=== PATIENT | female | born 1985 | race African-American/Black ===

== ENCOUNTER 2016-05-10 04:04 | Inpatient (IN) | payer MEDICAID ==
[2016-05-10] MEDS ORDERED: MAGNESIUM SULFATE 2GM/50ML 2 GM/50 ML BAG IV ONE ×2 (04:10→04:17)
[2016-05-10] MEDS ORDERED: ATROVENT IH ONE ×2 (04:15→04:17)
[2016-05-10] MEDS ORDERED: PROVENTIL IH ONE ×2 (04:15→04:17)
[2016-05-10 04:56] LABS: Basophils % (Auto) 0.5 % (0.0-1.8); Eosinophils % (Auto) 6.4 % (0.0-4.3); Hematocrit 43.1 % (30.3-42.9); Hemoglobin 13.9 gm/dl (10.1-14.3); Mean Corpuscular HGB Conc 32 % (30-34); Mean Corpuscular Hemoglobin 26 pg (28-32); Mean Corpuscular Volume 80 fl (79-97); Platelet Count 290 K/mm3 (140-440); Red Blood Count 5.39 M/mm3 (3.65-5.03); Red Cell Distribution Width 14.1 % (13.2-15.2); White Blood Count 13.6 K/mm3 (4.5-11.0)
[2016-05-10 05:34] LABS: Alanine Aminotransferase 7 units/L (7-56); Albumin 3.9 g/dL (3.9-5); Albumin/Globulin Ratio 1.2 %; Alkaline Phosphatase 98 units/L (35-129); Anion Gap 22 mmol/L; BUN/Creatinine Ratio 16.66; Bilirubin,Total 0.7 mg/dL (0.1-1.2); Blood Urea Nitrogen 10 mg/dL (7-17); Calcium 8.6 mg/dL (8.4-10.2); Carbon Dioxide 18 mmol/L (22-30); Chloride 104.5 mmol/L (98-107); Glucose 128 mg/dL (65-100); Potassium 3.4 mmol/L (3.6-5.0); Sodium 141 mmol/L (137-145); Total Protein 7.2 g/dL (6.3-8.2)
[2016-05-10] MEDS ORDERED: MILK OF MAGNESIA PO PRN (06:08)
[2016-05-10] MEDS ORDERED: ZOFRAN IV PRN (06:08)
[2016-05-10] MEDS ORDERED: TYLENOL PO PRN (06:08)
[2016-05-10] MEDS ORDERED: DULCOLAX PR PRN (06:08)
--- NOTE | 2016-05-10 06:14 | History and Physical Report ---
History of Present Illness Date of examination: 05/10/16 History of present illness: 30-year-old woman with a history of asthma comes emergency room with complaints of shortness of breath that started on Sunday. She has been using her nebulizer treatments without significant improvement. Also complaining of cough productive of yellow phlegm, no fever or chills Patient denies chest pain, palpitation, abdominal pain, hematochezia, dysuria, frequency, focal weakness, dysarthria, fever chills, polydipsia polyuria, hot or cold intolerance, easy bruisability, or rash or bleeding from mucosal membrane, rhinorrhea, epistaxis, earache, tinnitus, blurry vision, eye discharge , anxiety, depression. Other review of systems negative PAST SURGICAL HISTORY: None SOCIAL HISTORY: Smoke half a pack a day, social alcohol no drugs FAMILY HISTORY: Hypertension Medications and Allergies Allergies Allergy/AdvReac Type Severity Reaction Status Date / Time No Known Allergies Allergy Verified 11/09/14 06:58 Home Medications Medication Instructions Recorded Confirmed Last Taken Type Nitrofurantoin [place]/M-Cryst 100 mg PO Q12HR #14 capsule 11/09/14 Unknown Rx [Macrobid CAP] Promethazine Dm [Phenergan Dm 5 ml PO Q6H PRN #60 ml 11/09/14 Unknown Rx 6.25/15 mg 5 ml] Exam - Physical Exam Narrative exam: Gen. appearance: Patient lying in bed, no apparent distress HEENT: Normocephalic, atraumatic, pupils equally round and reactive to light, extraocular movement intact, and no sclericterus,. No JVD or thyromegaly or nodule,neck supple, no carotid bruit ,mucous membranes moist, no exudate or erythema Heart: S1, S2, regular rate and rhythm Lungs: Wheezing bilaterally, breathing comfortable Abdomen: Positive bowel sounds, nontender, nondistended, no organomegaly Extremity: No edema, cyanosis, clubbing Skin: No rash, nodules, warm, dry Neuro: Oriented 3, cranial nerves II-12 intact, speech is fluent, motor and sensory intact - Constitutional Vitals: Temp Pulse Resp BP Pulse Ox 102 H 28 H 114/74 96 05/10/16 04:52 05/10/16 04:52 05/10/16 04:52 05/10/16 04:52 Results - Labs CBC & Chem 7: 05/10/16 04:28 05/10/16 04:28 Labs: Abnormal lab results 05/10/16 05/10/16 Range/Units 04:28 04:28 WBC 13.6 H (4.5-11.0) K/mm3 RBC 5.39 H (3.65-5.03) M/mm3 Hct 43.1 H (30.3-42.9) % MCH 26 L (28-32) pg Eos % (Auto) 6.4 H (0.0-4.3) % Eos # 0.9 H (0.0-0.4) K/mm3 Seg Neutrophils # 8.8 H (1.8-7.7) K/mm3 Potassium 3.4 L (3.6-5.0) mmol/L Carbon Dioxide 18 L (22-30) mmol/L Creatinine 0.6 L (0.7-1.2) mg/dL Glucose 128 H (65-100) mg/dL Magnesium 4.0 H (1.7-2.3) mg/dL - Imaging and Cardiology Chest x-ray: image reviewed Assessment and Plan Asthma exacerbation Admit to medicine Start IV steroids high-dose, nebulizer treatments, and IV azithromycin Start DVT prophylaxis
--- NOTE | 2016-05-10 06:17 | Emergency Department Report ---
HPI - General Chief Complaint: Dyspnea/Respdistress Time Seen by Provider: 05/10/16 04:15 - HPI HPI: This is a 30-year-old female presents to the emergency department with a 2 to three-day history of shortness of breath, wheezing and a productive cough with yellowish sputum. Patient has a past medical history of asthma. She is a tobacco smoker. She things that her symptoms started because of the recent pollen. She's been using an inhaler without much relief. She does have a nebulized breathing machine but does not have any of the medication for. No recent travel or sick contacts at home. She denies any history of AR, CVA, PE/ DVT. She does not currently have a primary care doctor. ED Past Medical Hx - Past Medical History Previous Medical History?: Yes Hx Asthma: Yes Additional medical history: BRONCHITIS - Surgical History Past Surgical History?: No - Social History Smoking Status: Current Every Day Smoker Substance Use Type: None - Medications Home Medications: Home Medications Medication Instructions Recorded Confirmed Last Taken Type Nitrofurantoin [place]/M-Cryst 100 mg PO Q12HR #14 capsule 11/09/14 Unknown Rx [Macrobid CAP] Promethazine Dm [Phenergan Dm 5 ml PO Q6H PRN #60 ml 11/09/14 Unknown Rx 6.25/15 mg 5 ml] ED Review of Systems ROS: Stated complaint: RAYMON/ASTHMA Other details as noted in HPI Comment: All other systems reviewed and negative Constitutional: denies: chills, fever Eyes: denies: eye pain, eye discharge, vision change ENT: denies: ear pain, throat pain Respiratory: cough, shortness of breath, wheezing Cardiovascular: denies: chest pain, palpitations Gastrointestinal: denies: abdominal pain, nausea, diarrhea Genitourinary: denies: urgency, dysuria, discharge Musculoskeletal: denies: back pain, joint swelling, arthralgia Skin: denies: rash, lesions Neurological: denies: headache, weakness, paresthesias Physical Exam - Physical Exam Vital Signs: Vital Signs 05/10/16 05/10/16 05/10/16 04:05 04:08 04:10 Pulse Rate 132 H 125 H Pulse Rate [ Anterior Bilateral Throughout] Respiratory 28 H 25 H Rate Respiratory Rate [Anterior Bilateral Throughout] Blood Pressure 152/87 133/88 O2 Sat by Pulse 85 92 92 Oximetry 05/10/16 05/10/16 05/10/16 04:15 04:20 04:26 Pulse Rate 112 H 109 H 111 H Pulse Rate [ Anterior Bilateral Throughout] Respiratory 29 H 34 H 19 Rate Respiratory Rate [Anterior Bilateral Throughout] Blood Pressure 133/88 O2 Sat by Pulse 90 94 93 Oximetry 05/10/16 05/10/16 05/10/16 04:30 04:36 04:40 Pulse Rate 102 H 100 H Pulse Rate [ 102 H Anterior Bilateral Throughout] Respiratory 24 24 Rate Respiratory 23 Rate [Anterior Bilateral Throughout] Blood Pressure 118/78 118/78 O2 Sat by Pulse 93 94 Oximetry 05/10/16 04:52 Pulse Rate 101 H Pulse Rate [ 102 H Anterior Bilateral Throughout] Respiratory 26 H Rate Respiratory 28 H Rate [Anterior Bilateral Throughout] Blood Pressure 114/74 O2 Sat by Pulse 96 Oximetry Physical Exam: GENERAL: The patient is well-developed well-nourished. HEENT: Normocephalic. Atraumatic. Extraocular motions are intact. Patient has moist mucous membranes. Pupils equal reactive to light bilaterally. NECK: Supple. Trachea is midline. CHEST/LUNGS: Patient has moderate wheezing throughout the chest. There is some tachypnea and some mild supraclavicular accessory muscle use. There is conversational dyspnea. There is mild to moderate respiratory distress noted. HEART/CARDIOVASCULAR: Regular. There is mild to moderate tachycardia. There is no gallop rub or murmur. ABDOMEN: Abdomen is soft, nontender. Patient has normal bowel sounds. There is no abdominal distention. SKIN: Skin is warm and dry.. NEURO: The patient is awake, alert, and oriented. The patient is cooperative. The patient has no focal neurologic deficits. MUSCULOSKELETAL: There is no tenderness or deformity. There is no limitation range of motion. There is no evidence of acute injury. Radial pulses +2 over 4 bilaterally. Cap refill less than 2 seconds. ED Course Vital Signs 05/10/16 05/10/16 05/10/16 04:05 04:08 04:10 Pulse Rate 132 H 125 H Pulse Rate [ Anterior Bilateral Throughout] Respiratory 28 H 25 H Rate Respiratory Rate [Anterior Bilateral Throughout] Blood Pressure 152/87 133/88 O2 Sat by Pulse 85 92 92 Oximetry 05/10/16 05/10/16 05/10/16 04:15 04:20 04:26 Pulse Rate 112 H 109 H 111 H Pulse Rate [ Anterior Bilateral Throughout] Respiratory 29 H 34 H 19 Rate Respiratory Rate [Anterior Bilateral Throughout] Blood Pressure 133/88 O2 Sat by Pulse 90 94 93 Oximetry 05/10/16 05/10/16 05/10/16 04:30 04:36 04:40 Pulse Rate 102 H 100 H Pulse Rate [ 102 H Anterior Bilateral Throughout] Respiratory 24 24 Rate Respiratory 23 Rate [Anterior Bilateral Throughout] Blood Pressure 118/78 118/78 O2 Sat by Pulse 93 94 Oximetry 05/10/16 04:52 Pulse Rate 101 H Pulse Rate [ 102 H Anterior Bilateral Throughout] Respiratory 26 H Rate Respiratory 28 H Rate [Anterior Bilateral Throughout] Blood Pressure 114/74 O2 Sat by Pulse 96 Oximetry ED Medical Decision Making - Lab Data Result diagrams: 05/10/16 04:28 05/10/16 04:28 - EKG Data -: EKG Interpreted by Me EKG shows normal: sinus rhythm, axis, intervals, QRS complexes, ST-T waves Rate: normal - EKG Data When compared to previous EKG there are: previous EKG unavailable Interpretation: normal EKG - Radiology Data Radiology results: image reviewed interpreted by me: Chest x-ray did not show any acute process. Heart is normal shape and size. No effusions. No pneumothorax. No signs of pneumonia seen. - Medical Decision Making 30-year-old female presents with 2 day history of wheezing, cough, shortness of breath. Patient appears to have significant bronchospasm causing some respiratory distress. She required prolonged breathing treatment followed by BiPAP. However on the BiPAP machine the patient appears improved. Patient was given Solu-Medrol, magnesium. Patient's labs are mostly unremarkable and included a negative troponin and a negative d-dimer. Chest x-ray did not show any signs of pneumonia or any acute process. Despite all of the treatments thus far, the patient still continues to have bronchospasm and will need admission. She will need serial nebulized treatments and steroids. She has been accepted for admission by the hospitalist. - Differential Diagnosis asthma, bronchitis, pneumonia, PE, AR Critical Care Time: No Critical care attestation.: If time is entered above; I have spent that time in minutes in the direct care of this critically ill patient, excluding procedure time. ED Disposition Clinical Impression: Respiratory distress, Asthma exacerbation, Bronchospasm Disposition: OP ADMITTED IP TO THIS HOSP Is pt being admited?: Yes Condition: Stable Referrals: PRIMARY CARE, [Primary Care Provider] - 3-5 Days Time of Disposition: 06:18
--- NOTE | 2016-05-10 06:39 | Admit Criteria Form ---
Admission Criteria Documentation: ASTHMA Clinical Indications for Admission to Inpatient Care (Place 'X' for any and all applicable criteria): Admission is indicated for ANY ONE of the following (1)(2)(3)(4)(5): [ ]I. Absent or markedly diminished breath sounds (silent chest) [ ]II. Oxygen saturation < 92% [ ]III. PaCO2 = / > 42 mm Hg (5.6 kPa) [ ]IV. Peak expiratory flow rate < 40% of predicted or personal best after treatment. [ ]V. Peak expiratory flow rate < 33% of predicted or personal before after treatment [ ]. Change in mental status [ ]VII. Ventilatory support required [ ]VIII. PaO2 < 60 mm Hg (8.0 kPa) [ ]IX. Cyanosis [ ]X. Cardiac dysrhythmia (e.g., bradycardia) [ ]XI. Hemodynamic instability [ ]XII. Radiographic evidence of complication requiring inpatient treatment (e.g., pneumonia, pneumothorax) [ X]XIII. Inpatient admission required rather than observation care (also use Asthma: Observation Care guideline as appropriate) because of ANY ONE of the following: [X ]a) Respiratory finding that is severe or persistent (eg, dyspnea, tachypnea, accessory muscle use) [ ]b) Airflow measurements less than 60% of predicted or personal best that persist (e.g., over 24 hours) or worsen despite treatments [ ]c) Supplemental oxygen or respiratory treatments for over 24 hours that are performable only in acute inpatient setting [ X]d) Other condition, treatment or monitoring requiring inpatient admission. Extended stay beyond goal length of stay may be needed for (26)(27)(28): [ ]a) Severe respiratory failure (23) (29) (30) [ ]b) Secondary causes and complications (25) [ ]c) Status asthmaticus [ ]d) Chronic obstructive asthma [ ]e) Older patients (29) [ ]f) Slow resolution [ ]g) Clinically significant exacerbation of comorbidities (eg, hank. heart failure, atrial fibrillation) The original [employer] [facility] content created by [employer] has been revised. The portions of the content which have been revised are identified through the use of italic text or in bold, and [employer] [employer] has neither reviewed nor approved the modified material. All other unmodified content is copyright [facility] Please see references footnoted in the original [facility] edition 2016 Admission Criteria Met: Yes
[2016-05-10 06:57] LABS: ISTAT Base Excess -7; ISTAT HCO3 19.4; ISTAT PCO2 40.1 (35-45); ISTAT PH 7.292 (7.35-7.45); ISTAT PO2 28 (80-105); ISTAT SO2 46; ISTAT TCO2 21
[2016-05-10 06:57] LABS: ISTAT Base Excess -7; ISTAT HCO3 18.6; ISTAT PCO2 34.6 (35-45); ISTAT PH 7.338 (7.35-7.45); ISTAT PO2 80 (80-105); ISTAT SO2 95; ISTAT TCO2 20
--- NOTE | 2016-05-10 07:32 | XRay Report ---
AP CHEST: HISTORY: Dyspnea AP view of the chest demonstrates a normal mediastinal and cardiac contour with clear lungs and normal bony and soft tissue structures. IMPRESSION: Unremarkable AP chest. No significant change since 11/09/14.
[2016-05-10] MEDS ORDERED: DUONEB 0.5 MG-3 MG/3 ML SOLN IH ONE (08:22)
[2016-05-10] MEDS: DUONEB 0.5 MG-3 MG/3 ML SOLN IH SCH ×5 (08:31→20:43)
[2016-05-10] MEDS: LOVENOX SUB-Q SCH (10:00)
[2016-05-10] MEDS: ZITHROMAX 500 MG in NACL 0.9% 250ML 250 ML IV SCH (10:00)
--- NOTE | 2016-05-10 13:19 | Event Note ---
Date: 05/10/16 Patient with asthma excaerbation with acute resp failure. She was seen and examined. Continue BIPAP. Will consult Marketing Underwriter.
--- NOTE | 2016-05-10 21:34 | Consultation ---
History of Present Illness Consult date: 05/10/16 Reason for consult: cough, asthma History of present illness: Tis is 30 year old female has history of asthma admitted with shortness of breath, wheezing and cough. Coughing up yellow sputum. Patient denies allergies to the medications. Patient gets asthma attacks twice a year. 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 Patient denies other medical problems. Patient has history of smoking 1/2 a pack a day for 10 years. Counselled her to stop smoking.Drinks alcohol socially.No history of drug abuse.Family history positive for hypertension. Past History Past Medical History: other (Asthma.) Medications and Allergies Allergies Allergy/AdvReac Type Severity Reaction Status Date / Time No Known Allergies Allergy Verified 05/10/16 08:55 Home Medications Medication Instructions Recorded Confirmed Last Taken Type ALBUTEROL Inhaler [Proair] 2 puff IH QID PRN 05/10/16 05/10/16 05/09/16 History ALBUTEROL NEB's [Proventil] 2.5 mg IH TID PRN 05/10/16 05/10/16 05/09/16 History Loratadine/Pseudoephedrine 1 tab PO DAILY 05/10/16 05/10/16 05/09/16 History [Claritin-D 24Hr] Active Meds: Active Medications Acetaminophen (Tylenol) 650 mg PO Q4H PRN PRN Reason: Pain MILD(1-3)/Fever >100.5/MANJARREZ Albuterol/Ipratropium (Duoneb 0.5 Mg-3 Mg/3 Ml Soln) 1 ampul IH Q6HRT [facility] Last Admin: 05/10/16 20:43 Dose: 1 ampul Bisacodyl (Dulcolax) 10 mg TN QDAY PRN PRN Reason: Constipation unrelieved by MOM Enoxaparin Sodium (Lovenox) 40 mg SUB-Q QDAY [facility] Last Admin: 05/10/16 10:00 Dose: 40 mg Azithromycin 500 mg/ Sodium (Chloride) 250 mls @ 250 mls/hr IV Q24HR [facility] Last Admin: 05/10/16 10:00 Dose: 250 mls/hr Magnesium Hydroxide (Milk Of Magnesia) 30 ml PO Q4H PRN PRN Reason: Constipation Methylprednisolone Sodium Succinate (Solu-Medrol) 125 mg IV Q6H [facility] Last Admin: 05/10/16 15:49 Dose: 125 mg Ondansetron HCl (Zofran) 4 mg IV Q8H PRN PRN Reason: N/V unrelieved by Deidre Review of Systems All systems: negative Physical Examination Vital signs: Vital Signs Pulse Resp BP Pulse Ox 132 H 28 H 152/87 85 05/10/16 04:05 05/10/16 04:05 05/10/16 04:05 05/10/16 04:05 General appearance: alert, other ( mild to moderate respiratory distress.) ENT: oropharynx moist Neck: supple, no JVD Ascultation: Bilateral: wheezes, rhonchi Cardiovascular: regular rate and rhythm Gastrointestinal: normoactive bowel sounds, soft, non-tender Integumentary: normal Extremities: no cyanosis, no edema Musculoskeletal: no deformities Gait: normal gait normal mental status, non-focal exam, pupils equal and round, CN II-XII normal mood appropriate Results - Laboratory Findings CBC and BMP: 05/10/16 04:28 05/10/16 04:28 ABG POC ABG pH 7.338 (7.35-7.45) L 05/10/16 06:49 POC ABG pCO2 34.6 (35-45) L 05/10/16 06:49 POC ABG pO2 80 (80-105) 05/10/16 06:49 POC ABG HCO3 18.6 05/10/16 06:49 POC ABG Total CO2 20 05/10/16 06:49 POC ABG O2 Sat 95 05/10/16 06:49 PT/INR, D-dimer D-Dimer < 135.00 ng/mlDDU (0-234) 05/10/16 04:28 Abnormal lab findings: Abnormal Labs 05/10/16 06:49 POC ABG pH 7.338 L POC ABG pCO2 34.6 L - Diagnostic Findings Chest x-ray: report reviewed (Unremarkable chest xray.), image reviewed Assessment and Plan Tis is 30 year old female has history of asthma admitted with shortness of breath, wheezing and cough. Coughing up yellow sputum. Patient denies allergies to the medications. Patient gets asthma attacks twice a year. 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 Patient denies other medical problems. Patient has history of smoking 1/2 a pack a day for 10 years. Counselled her to stop smoking.Drinks alcohol socially.No history of drug abuse.Family history positive for hypertension. - Patient Problems (1) Acute bronchitis Current Visit: Yes Status: Acute Qualifiers: Bronchitis organism: B Plan to address problem: Continue Zithromax. Recommend to add ceftrioxone also. (2) Asthma exacerbation Current Visit: Yes Status: Acute Plan to address problem: BIPAP 16/8, rate 20, FIO2 40% Albuterol/Atrovent aerosol treatments q 6 hours. Continue I/V solumedral. Continue S/C Lovenox. (3) Respiratory distress Current Visit: Yes Status: Acute Plan to address problem: BIPAP 16/8, rate 20, FIO2 40%. ABGs on bipap tomorrow.
[2016-05-11] MEDS: DUONEB 0.5 MG-3 MG/3 ML SOLN IH SCH ×5 (01:46→19:29)
[2016-05-11 07:14] LABS: Hematocrit 45.3 % (30.3-42.9); Mean Corpuscular HGB Conc 33 % (30-34); Mean Corpuscular Hemoglobin 26 pg (28-32); Mean Corpuscular Volume 79 fl (79-97); Platelet Count 334 K/mm3 (140-440); Red Blood Count 5.76 M/mm3 (3.65-5.03); Red Cell Distribution Width 14.4 % (13.2-15.2)
[2016-05-11 07:18] LABS: Bilirubin,Urine NEG (Negative); Blood,Urine NEG (Negative); Ketones,Urine 80 mg/dL (Negative); Leukocyte Esterase,Urine NEG (Negative); Mucus,Urine FEW /HPF; Nitrite,Urine NEG (Negative); RBC,Urine < 1.0 /HPF (0.0-6.0); Urobilinogen,Urine < 2.0 mg/dL (<2.0); WBC,Urine < 1.0 /HPF (0.0-6.0)
[2016-05-11 07:18] LABS: White Blood Count 21.1 K/mm3 (4.5-11.0)
[2016-05-11 07:33] LABS: Anion Gap 20 mmol/L; Blood Urea Nitrogen 15 mg/dL (7-17); Carbon Dioxide 21 mmol/L (22-30); Chloride 101.6 mmol/L (98-107); Glucose 157 mg/dL (65-100); Sodium 138 mmol/L (137-145)
[2016-05-11 07:35] LABS: Potassium 4.1 mmol/L (3.6-5.0)
[2016-05-11 08:27] LABS: Basophils % (Manual) 0 % (0.0-1.8); Blastocytes % (Manual) 0 %; Eosinophils % (Manual) 0 % (0.0-4.3); Total Cells Counted Percent 0
[2016-05-11 08:28] LABS: Diff Status Complete; RBC Morphology Normal
--- NOTE | 2016-05-11 09:55 | Progress Note ---
Assessment and Plan - Patient Problems (1) Tobacco use disorder Current Visit: Yes Status: Acute Plan to address problem: - abstinence counselled (2) Obesity Current Visit: Yes Status: Acute Qualifiers: Obesity type: O Obesity severity: O Plan to address problem: - weight loss copunselled - continue NIB scheduled qhs re: overlap syndrome (3) Asthma exacerbation Current Visit: Yes Status: Acute Plan to address problem: - continue systemic steroids but taper - continue bronchodilators and pulmonary toilet (Added LABA) - continue empiric zithromax therapy Subjective Date of service: 05/11/16 Principal diagnosis: Acute Asthma Exacerbation Interval history: Seen and examined at bedside; 24 hour events reviewed; nursing and respiratory care staff consulted; no adverse overnight events reported to me; resting in bed but on BIPAP; tolerated a few minutes off earlier; overall feels improved and denies acute chest pains Objective Vital Signs - 12hr 05/10/16 05/10/16 05/11/16 22:00 23:40 01:48 Temperature 97.0 F L Pulse Rate Pulse Rate [ 92 H Bilateral Throughout] Pulse Rate [ 103 H Right] Respiratory 24 22 Rate Respiratory 22 Rate [Bilateral Throughout] Blood Pressure Blood Pressure 111/69 [Right Arm] O2 Sat by Pulse 98 97 Oximetry 05/11/16 05/11/16 05/11/16 01:54 01:58 08:00 Temperature 97.5 F L Pulse Rate 91 H 91 H Pulse Rate [ 98 H Bilateral Throughout] Pulse Rate [ 105 H Right] Respiratory 25 H 25 H 18 Rate Respiratory 26 H Rate [Bilateral Throughout] Blood Pressure 118/68 Blood Pressure 121/71 [Right Arm] O2 Sat by Pulse 98 98 97 Oximetry Constitutional: alert, other ( mild to moderate respiratory distress.) ENT: oropharynx moist Neck: supple, no JVD Ascultation: Bilateral: wheezes (expiratory), rhonchi Cardiovascular: regular rate and rhythm Gastrointestinal: normoactive bowel sounds, soft, non-tender, non-distended Integumentary: normal Extremities: no cyanosis, no edema, pulses normal, no ischemia or petechiae Neurologic: normal mental status, non-focal exam, pupils equal and round, CN II- XII normal Psychiatric: mood appropriate, affect normal CBC and BMP: 05/11/16 06:27 05/11/16 06:27 ABG, PT/INR, D-dimer: ABG POC ABG pH 7.338 (7.35-7.45) L 05/10/16 06:49 POC ABG pCO2 34.6 (35-45) L 05/10/16 06:49 POC ABG pO2 80 (80-105) 05/10/16 06:49 POC ABG HCO3 18.6 05/10/16 06:49 POC ABG Total CO2 20 05/10/16 06:49 POC ABG O2 Sat 95 05/10/16 06:49 PT/INR, D-dimer D-Dimer < 135.00 ng/mlDDU (0-234) 05/10/16 04:28 Abnormal lab findings: Abnormal Labs 05/10/16 05/11/16 05/11/16 06:49 06:27 06:27 WBC 21.1 H RBC 5.76 H Hgb 15.0 H Hct 45.3 H MCH 26 L Seg Neuts % (Manual) 98.0 H Lymphocytes % (Manual) 2.0 L Seg Neutrophils # Man 20.7 H Lymphocytes # (Manual) 0.4 L POC ABG pH 7.338 L POC ABG pCO2 34.6 L Carbon Dioxide 21 L Creatinine 0.6 L Glucose 157 H Chest x-ray: image reviewed
[2016-05-11] MEDS: ZITHROMAX 500 MG in NACL 0.9% 250ML 250 ML IV SCH (10:32)
[2016-05-11] MEDS: LOVENOX SUB-Q SCH (10:35)
[2016-05-11 12:52] LABS: ISTAT Base Excess -3; ISTAT HCO3 21.4; ISTAT PCO2 33.6 (35-45); ISTAT PH 7.411 (7.35-7.45); ISTAT PO2 96 (80-105); ISTAT SO2 98; ISTAT TCO2 22
[2016-05-11] MEDS ORDERED: PROVENTIL IH PRN (12:59)
--- NOTE | 2016-05-11 13:14 | Progress Note ---
Hospitalist Physical - Constitutional Vitals: Temp Pulse Resp BP Pulse Ox 97.5 F L 106 H 24 121/71 98 05/11/16 08:00 05/11/16 12:18 05/11/16 12:18 05/11/16 08:00 05/11/16 12:56 Results - Labs CBC & Chem 7: 05/11/16 06:27 05/11/16 06:27 Labs: Laboratory Last Values WBC 21.1 K/mm3 (4.5-11.0) H 05/11/16 06:27 RBC 5.76 M/mm3 (3.65-5.03) H 05/11/16 06:27 Hgb 15.0 gm/dl (10.1-14.3) H 05/11/16 06:27 Hct 45.3 % (30.3-42.9) H 05/11/16 06:27 MCV 79 fl (79-97) 05/11/16 06:27 MCH 26 pg (28-32) L 05/11/16 06:27 MCHC 33 % (30-34) 05/11/16 06:27 RDW 14.4 % (13.2-15.2) 05/11/16 06:27 Plt Count 334 K/mm3 (140-440) 05/11/16 06:27 Lymph % (Auto) 21.7 % (13.4-35.0) 05/10/16 04:28 [place] % (Auto) 6.2 % (0.0-7.3) 05/10/16 04:28 Eos % (Auto) 6.4 % (0.0-4.3) H 05/10/16 04:28 Baso % (Auto) 0.5 % (0.0-1.8) 05/10/16 04:28 Lymph # 3.0 K/mm3 (1.2-5.4) 05/10/16 04:28 [place] # 0.8 K/mm3 (0.0-0.8) 05/10/16 04:28 Eos # 0.9 K/mm3 (0.0-0.4) H 05/10/16 04:28 Baso # 0.1 K/mm3 (0.0-0.1) 05/10/16 04:28 Add Manual Diff Complete 05/11/16 06:27 Total Counted 100 05/11/16 06:27 Seg Neutrophils % [employer]ician 05/11/16 06:27 Seg Neuts % (Manual) 98.0 % (40.0-70.0) H 05/11/16 06:27 Band Neutrophils % 0 % 05/11/16 06:27 Lymphocytes % (Manual) 2.0 % (13.4-35.0) L 05/11/16 06:27 Reactive Lymphs % (Man) 0 % 05/11/16 06:27 Monocytes % (Manual) 0 % (0.0-7.3) 05/11/16 06:27 Eosinophils % (Manual) 0 % (0.0-4.3) 05/11/16 06:27 Basophils % (Manual) 0 % (0.0-1.8) 05/11/16 06:27 Metamyelocytes % 0 % 05/11/16 06:27 Myelocytes % 0 % 05/11/16 06:27 Promyelocytes % 0 % 05/11/16 06:27 Blast Cells % 0 % 05/11/16 06:27 Nucleated RBC % Not Reportable 05/11/16 06:27 Seg Neutrophils # 8.8 K/mm3 (1.8-7.7) H 05/10/16 04:28 Seg Neutrophils # Man 20.7 K/mm3 (1.8-7.7) H 05/11/16 06:27 Band Neutrophils # 0.0 K/mm3 05/11/16 06:27 Lymphocytes # (Manual) 0.4 K/mm3 (1.2-5.4) L 05/11/16 06:27 Abs React Lymphs (Man) 0.0 K/mm3 05/11/16 06:27 Monocytes # (Manual) 0.0 K/mm3 (0.0-0.8) 05/11/16 06:27 Eosinophils # (Manual) 0.0 K/mm3 (0.0-0.4) 05/11/16 06:27 Basophils # (Manual) 0.0 K/mm3 (0.0-0.1) 05/11/16 06:27 Metamyelocytes # 0.0 K/mm3 05/11/16 06:27 Myelocytes # 0.0 K/mm3 05/11/16 06:27 Promyelocytes # 0.0 K/mm3 05/11/16 06:27 Blast Cells # 0.0 K/mm3 05/11/16 06:27 WBC Morphology Not Reportable 05/11/16 06:27 Hypersegmented Neuts Not Reportable 05/11/16 06:27 Hyposegmented Neuts Not Reportable 05/11/16 06:27 Hypogranular Neuts Not Reportable 05/11/16 06:27 Smudge Cells Not Reportable 05/11/16 06:27 Toxic Granulation Not Reportable 05/11/16 06:27 Toxic Vacuolation Not Reportable 05/11/16 06:27 Dohle Bodies Not Reportable 05/11/16 06:27 Pelger-Huet Anomaly Not Reportable 05/11/16 06:27 Chantelle Rods Not Reportable 05/11/16 06:27 Platelet Estimate Appears normal 05/11/16 06:27 Clumped Platelets Not Reportable 05/11/16 06:27 Plt Clumps, EDTA Not Reportable 05/11/16 06:27 Large Platelets Not Reportable 05/11/16 06:27 Giant Platelets Not Reportable 05/11/16 06:27 Platelet Satelliting Not Reportable 05/11/16 06:27 Plt Morphology Comment Not Reportable 05/11/16 06:27 RBC Morphology Normal 05/11/16 06:27 Dimorphic RBCs Not Reportable 05/11/16 06:27 Polychromasia Not Reportable 05/11/16 06:27 Hypochromasia Not Reportable 05/11/16 06:27 Poikilocytosis Not Reportable 05/11/16 06:27 Anisocytosis Not Reportable 05/11/16 06:27 Microcytosis Not Reportable 05/11/16 06:27 Macrocytosis Not Reportable 05/11/16 06:27 Spherocytes Not Reportable 05/11/16 06:27 Pappenheimer Bodies Not Reportable 05/11/16 06:27 Sickle Cells Not Reportable 05/11/16 06:27 Target Cells Not Reportable 05/11/16 06:27 Tear Drop Cells Not Reportable 05/11/16 06:27 Ovalocytes Not Reportable 05/11/16 06:27 Helmet Cells Not Reportable 05/11/16 06:27 Borrero-[place] Bodies Not Reportable 05/11/16 06:27 [place] Rings Not Reportable 05/11/16 06:27 [place] Cells Not Reportable 05/11/16 06:27 Bite Cells Not Reportable 05/11/16 06:27 Crenated Cell Not Reportable 05/11/16 06:27 Elliptocytes Not Reportable 05/11/16 06:27 Acanthocytes (Spur) Not Reportable 05/11/16 06:27 Rouleaux Not Reportable 05/11/16 06:27 Hemoglobin C Crystals Not Reportable 05/11/16 06:27 Schistocytes Not Reportable 05/11/16 06:27 Malaria parasites Not Reportable 05/11/16 06:27 Reyes Bodies Not Reportable 05/11/16 06:27 Hem Pathologist Commnt No 05/11/16 06:27 D-Dimer < 135.00 ng/mlDDU (0-234) 05/10/16 04:28 POC ABG pH 7.411 (7.35-7.45) 05/11/16 12:10 POC ABG pCO2 33.6 (35-45) L 05/11/16 12:10 POC ABG pO2 96 (80-105) 05/11/16 12:10 POC ABG HCO3 21.4 05/11/16 12:10 POC ABG Total CO2 22 05/11/16 12:10 POC ABG O2 Sat 98 05/11/16 12:10 POC ABG Base Excess -3 05/11/16 12:10 FiO2 35 % 05/11/16 12:10 Sodium 138 mmol/L (137-145) 05/11/16 06:27 Potassium 4.1 mmol/L (3.6-5.0) D 05/11/16 06:27 Chloride 101.6 mmol/L (98-107) 05/11/16 06:27 Carbon Dioxide 21 mmol/L (22-30) L 05/11/16 06:27 Anion Gap 20 mmol/L 05/11/16 06:27 BUN 15 mg/dL (7-17) 05/11/16 06:27 Creatinine 0.6 mg/dL (0.7-1.2) L 05/11/16 06:27 Estimated GFR > 60 ml/min 05/11/16 06:27 BUN/Creatinine Ratio 25.00 % 05/11/16 06:27 Glucose 157 mg/dL (65-100) H 05/11/16 06:27 Calcium 9.0 mg/dL (8.4-10.2) 05/11/16 06:27 Magnesium 4.0 mg/dL (1.7-2.3) H 05/10/16 04:28 Total Bilirubin 0.7 mg/dL (0.1-1.2) 05/10/16 04:28 AST 13 units/L (5-40) 05/10/16 04:28 ALT 7 units/L (7-56) 05/10/16 04:28 Alkaline Phosphatase 98 units/L (35-129) 05/10/16 04:28 Troponin T < 0.010 ng/mL (0.00-0.029) 05/10/16 04:28 NT-Pro-B Natriuret Pep 16.87 pg/mL (0-450) 05/10/16 04:28 Total Protein 7.2 g/dL (6.3-8.2) 05/10/16 04:28 Albumin 3.9 g/dL (3.9-5) 05/10/16 04:28 Albumin/Globulin Ratio 1.2 % 05/10/16 04:28 HCG, Qual Negative (Negative) 05/10/16 04:28 Urine Color Yellow (Yellow) 05/11/16 06:35 Urine Turbidity Clear (Clear) 05/11/16 06:35 Urine pH 6.0 (5.0-7.0) 05/11/16 06:35 Ur Specific [place] 1.030 (1.003-1.030) 05/11/16 06:35 Urine Protein 100 mg/dl mg/dL (Negative) 05/11/16 06:35 Urine Glucose (UA) 50 mg/dL (Negative) 05/11/16 06:35 Urine Ketones 80 mg/dL (Negative) 05/11/16 06:35 Urine Blood Neg (Negative) 05/11/16 06:35 Urine Nitrite Neg (Negative) 05/11/16 06:35 Urine Bilirubin Neg (Negative) 05/11/16 06:35 Urine Urobilinogen < 2.0 mg/dL (<2.0) 05/11/16 06:35 Ur Leukocyte Esterase Neg (Negative) 05/11/16 06:35 Urine WBC (Auto) < 1.0 /HPF (0.0-6.0) 05/11/16 06:35 Urine RBC (Auto) < 1.0 /HPF (0.0-6.0) 05/11/16 06:35 U Epithel Cells (Auto) 1.0 /HPF (0-13.0) 05/11/16 06:35 Urine Mucus Few /HPF 05/11/16 06:35
[2016-05-11] MEDS ORDERED: XANAX PO ONE (18:30)
[2016-05-11] MEDS: BROVANA NEBU IH SCH (20:49)
[2016-05-12] MEDS: DUONEB 0.5 MG-3 MG/3 ML SOLN IH SCH ×7 (01:32→23:50)
[2016-05-12 05:50] LABS: Hematocrit 41.4 % (30.3-42.9); Hemoglobin 13.6 gm/dl (10.1-14.3); Mean Corpuscular HGB Conc 33 % (30-34); Mean Corpuscular Hemoglobin 26 pg (28-32); Mean Corpuscular Volume 79 fl (79-97); Platelet Count 326 K/mm3 (140-440); Red Blood Count 5.26 M/mm3 (3.65-5.03); Red Cell Distribution Width 14.2 % (13.2-15.2); White Blood Count 24.6 K/mm3 (4.5-11.0)
[2016-05-12 05:58] LABS: Anion Gap 14 mmol/L; BUN/Creatinine Ratio 36.66; Blood Urea Nitrogen 22 mg/dL (7-17); Calcium 8.6 mg/dL (8.4-10.2); Carbon Dioxide 25 mmol/L (22-30); Chloride 103.3 mmol/L (98-107); Glucose 150 mg/dL (65-100); Potassium 4.4 mmol/L (3.6-5.0); Sodium 138 mmol/L (137-145)
[2016-05-12] MEDS: BROVANA NEBU IH SCH ×2 (07:50→21:42)
[2016-05-12] MEDS: LOVENOX SUB-Q SCH (10:30)
[2016-05-12] MEDS: ZITHROMAX 500 MG in NACL 0.9% 250ML 250 ML IV SCH (10:32)
--- NOTE | 2016-05-12 11:08 | Progress Note ---
Assessment and Plan - Patient Problems (1) Tobacco use disorder Current Visit: Yes Status: Acute (2) Obesity Current Visit: Yes Status: Acute Qualifiers: Obesity type: O Obesity severity: O (3) Asthma exacerbation Current Visit: Yes Status: Acute Subjective Date of service: 05/12/16 Principal diagnosis: Acute Asthma Exacerbation Interval history: Seen and examined at bedside; 24 hour events reviewed; nursing and respiratory care staff consulted; no adverse overnight events reported to me; Objective Vital Signs - 12hr 05/12/16 05/12/16 05/12/16 01:22 01:33 04:32 Temperature Pulse Rate [ 96 H 88 90 Anterior Bilateral Throughout] Pulse Rate [ Bilateral Throughout] Pulse Rate [ Left Radial] Respiratory Rate Respiratory 20 17 20 Rate [Anterior Bilateral Throughout] Respiratory Rate [Bilateral Throughout] Blood Pressure [Left Arm] O2 Sat by Pulse Oximetry 05/12/16 05/12/16 05/12/16 04:43 07:52 07:57 Temperature Pulse Rate [ 94 H Anterior Bilateral Throughout] Pulse Rate [ 85 86 Bilateral Throughout] Pulse Rate [ Left Radial] Respiratory Rate Respiratory 20 Rate [Anterior Bilateral Throughout] Respiratory 20 20 Rate [Bilateral Throughout] Blood Pressure [Left Arm] O2 Sat by Pulse 96 Oximetry 05/12/16 08:00 Temperature 98.6 F Pulse Rate [ Anterior Bilateral Throughout] Pulse Rate [ Bilateral Throughout] Pulse Rate [ 91 H Left Radial] Respiratory 24 Rate Respiratory Rate [Anterior Bilateral Throughout] Respiratory Rate [Bilateral Throughout] Blood Pressure 104/66 [Left Arm] O2 Sat by Pulse 98 Oximetry Constitutional: alert, other ( mild to moderate respiratory distress.) ENT: oropharynx moist Neck: supple, no JVD Ascultation: Bilateral: wheezes (expiratory), rhonchi Cardiovascular: regular rate and rhythm Gastrointestinal: normoactive bowel sounds, soft, non-tender, non-distended Integumentary: normal Extremities: no cyanosis, no edema, pulses normal, no ischemia or petechiae Neurologic: normal mental status, non-focal exam, pupils equal and round, CN II- XII normal Psychiatric: mood appropriate, affect normal CBC and BMP: 05/12/16 05:10 05/12/16 05:10 ABG, PT/INR, D-dimer: ABG POC ABG pH 7.411 (7.35-7.45) 05/11/16 12:10 POC ABG pCO2 33.6 (35-45) L 05/11/16 12:10 POC ABG pO2 96 (80-105) 05/11/16 12:10 POC ABG HCO3 21.4 05/11/16 12:10 POC ABG Total CO2 22 05/11/16 12:10 POC ABG O2 Sat 98 05/11/16 12:10 PT/INR, D-dimer D-Dimer < 135.00 ng/mlDDU (0-234) 05/10/16 04:28 Abnormal lab findings: Abnormal Labs 05/10/16 05/11/16 05/11/16 06:49 06:27 06:27 WBC 21.1 H RBC 5.76 H Hgb 15.0 H Hct 45.3 H MCH 26 L Seg Neuts % (Manual) 98.0 H Lymphocytes % (Manual) 2.0 L Seg Neutrophils # Man 20.7 H Lymphocytes # (Manual) 0.4 L POC ABG pH 7.338 L POC ABG pCO2 34.6 L Carbon Dioxide 21 L BUN Creatinine 0.6 L Glucose 157 H 05/11/16 05/12/16 05/12/16 12:10 05:10 05:10 WBC 24.6 H RBC 5.26 H Hgb Hct MCH 26 L Seg Neuts % (Manual) Lymphocytes % (Manual) Seg Neutrophils # Man Lymphocytes # (Manual) POC ABG pH POC ABG pCO2 33.6 L Carbon Dioxide BUN 22 H Creatinine 0.6 L Glucose 150 H
--- NOTE | 2016-05-12 16:21 | Progress Note ---
Hospitalist Physical - Constitutional Vitals: Temp Pulse Resp BP Pulse Ox 98.2 F 103 H 20 103/55 97 05/12/16 14:55 05/12/16 16:08 05/12/16 16:08 05/12/16 14:55 05/12/16 14:55 Results - Labs CBC & Chem 7: 05/12/16 05:10 05/12/16 05:10 Labs: Laboratory Last Values WBC 24.6 K/mm3 (4.5-11.0) H 05/12/16 05:10 RBC 5.26 M/mm3 (3.65-5.03) H 05/12/16 05:10 Hgb 13.6 gm/dl (10.1-14.3) 05/12/16 05:10 Hct 41.4 % (30.3-42.9) 05/12/16 05:10 MCV 79 fl (79-97) 05/12/16 05:10 MCH 26 pg (28-32) L 05/12/16 05:10 MCHC 33 % (30-34) 05/12/16 05:10 RDW 14.2 % (13.2-15.2) 05/12/16 05:10 Plt Count 326 K/mm3 (140-440) 05/12/16 05:10 Lymph % (Auto) 21.7 % (13.4-35.0) 05/10/16 04:28 [place] % (Auto) 6.2 % (0.0-7.3) 05/10/16 04:28 Eos % (Auto) 6.4 % (0.0-4.3) H 05/10/16 04:28 Baso % (Auto) 0.5 % (0.0-1.8) 05/10/16 04:28 Lymph # 3.0 K/mm3 (1.2-5.4) 05/10/16 04:28 [place] # 0.8 K/mm3 (0.0-0.8) 05/10/16 04:28 Eos # 0.9 K/mm3 (0.0-0.4) H 05/10/16 04:28 Baso # 0.1 K/mm3 (0.0-0.1) 05/10/16 04:28 Add Manual Diff Complete 05/11/16 06:27 Total Counted 100 05/11/16 06:27 Seg Neutrophils % [employer] Sales Associate 05/11/16 06:27 Seg Neuts % (Manual) 98.0 % (40.0-70.0) H 05/11/16 06:27 Band Neutrophils % 0 % 05/11/16 06:27 Lymphocytes % (Manual) 2.0 % (13.4-35.0) L 05/11/16 06:27 Reactive Lymphs % (Man) 0 % 05/11/16 06:27 Monocytes % (Manual) 0 % (0.0-7.3) 05/11/16 06:27 Eosinophils % (Manual) 0 % (0.0-4.3) 05/11/16 06:27 Basophils % (Manual) 0 % (0.0-1.8) 05/11/16 06:27 Metamyelocytes % 0 % 05/11/16 06:27 Myelocytes % 0 % 05/11/16 06:27 Promyelocytes % 0 % 05/11/16 06:27 Blast Cells % 0 % 05/11/16 06:27 Nucleated RBC % Not Reportable 05/11/16 06:27 Seg Neutrophils # 8.8 K/mm3 (1.8-7.7) H 05/10/16 04:28 Seg Neutrophils # Man 20.7 K/mm3 (1.8-7.7) H 05/11/16 06:27 Band Neutrophils # 0.0 K/mm3 05/11/16 06:27 Lymphocytes # (Manual) 0.4 K/mm3 (1.2-5.4) L 05/11/16 06:27 Abs React Lymphs (Man) 0.0 K/mm3 05/11/16 06:27 Monocytes # (Manual) 0.0 K/mm3 (0.0-0.8) 05/11/16 06:27 Eosinophils # (Manual) 0.0 K/mm3 (0.0-0.4) 05/11/16 06:27 Basophils # (Manual) 0.0 K/mm3 (0.0-0.1) 05/11/16 06:27 Metamyelocytes # 0.0 K/mm3 05/11/16 06:27 Myelocytes # 0.0 K/mm3 05/11/16 06:27 Promyelocytes # 0.0 K/mm3 05/11/16 06:27 Blast Cells # 0.0 K/mm3 05/11/16 06:27 WBC Morphology Not Reportable 05/11/16 06:27 Hypersegmented Neuts Not Reportable 05/11/16 06:27 Hyposegmented Neuts Not Reportable 05/11/16 06:27 Hypogranular Neuts Not Reportable 05/11/16 06:27 Smudge Cells Not Reportable 05/11/16 06:27 Toxic Granulation Not Reportable 05/11/16 06:27 Toxic Vacuolation Not Reportable 05/11/16 06:27 Dohle Bodies Not Reportable 05/11/16 06:27 Pelger-Huet Anomaly Not Reportable 05/11/16 06:27 Chantelle Rods Not Reportable 05/11/16 06:27 Platelet Estimate Appears normal 05/11/16 06:27 Clumped Platelets Not Reportable 05/11/16 06:27 Plt Clumps, EDTA Not Reportable 05/11/16 06:27 Large Platelets Not Reportable 05/11/16 06:27 Giant Platelets Not Reportable 05/11/16 06:27 Platelet Satelliting Not Reportable 05/11/16 06:27 Plt Morphology Comment Not Reportable 05/11/16 06:27 RBC Morphology Normal 05/11/16 06:27 Dimorphic RBCs Not Reportable 05/11/16 06:27 Polychromasia Not Reportable 05/11/16 06:27 Hypochromasia Not Reportable 05/11/16 06:27 Poikilocytosis Not Reportable 05/11/16 06:27 Anisocytosis Not Reportable 05/11/16 06:27 Microcytosis Not Reportable 05/11/16 06:27 Macrocytosis Not Reportable 05/11/16 06:27 Spherocytes Not Reportable 05/11/16 06:27 Pappenheimer Bodies Not Reportable 05/11/16 06:27 Sickle Cells Not Reportable 05/11/16 06:27 Target Cells Not Reportable 05/11/16 06:27 Tear Drop Cells Not Reportable 05/11/16 06:27 Ovalocytes Not Reportable 05/11/16 06:27 Helmet Cells Not Reportable 05/11/16 06:27 [place] Bodies Not Reportable 05/11/16 06:27 [place] Rings Not Reportable 05/11/16 06:27 [place] Cells Not Reportable 05/11/16 06:27 Bite Cells Not Reportable 05/11/16 06:27 Crenated Cell Not Reportable 05/11/16 06:27 Elliptocytes Not Reportable 05/11/16 06:27 Acanthocytes (Spur) Not Reportable 05/11/16 06:27 Rouleaux Not Reportable 05/11/16 06:27 Hemoglobin C Crystals Not Reportable 05/11/16 06:27 Schistocytes Not Reportable 05/11/16 06:27 Malaria parasites Not Reportable 05/11/16 06:27 Reyes Bodies Not Reportable 05/11/16 06:27 Hem Pathologist Commnt No 05/11/16 06:27 D-Dimer < 135.00 ng/mlDDU (0-234) 05/10/16 04:28 POC ABG pH 7.411 (7.35-7.45) 05/11/16 12:10 POC ABG pCO2 33.6 (35-45) L 05/11/16 12:10 POC ABG pO2 96 (80-105) 05/11/16 12:10 POC ABG HCO3 21.4 05/11/16 12:10 POC ABG Total CO2 22 05/11/16 12:10 POC ABG O2 Sat 98 05/11/16 12:10 POC ABG Base Excess -3 05/11/16 12:10 FiO2 35 % 05/11/16 12:10 Sodium 138 mmol/L (137-145) 05/12/16 05:10 Potassium 4.4 mmol/L (3.6-5.0) 05/12/16 05:10 Chloride 103.3 mmol/L (98-107) 05/12/16 05:10 Carbon Dioxide 25 mmol/L (22-30) 05/12/16 05:10 Anion Gap 14 mmol/L 05/12/16 05:10 BUN 22 mg/dL (7-17) H 05/12/16 05:10 Creatinine 0.6 mg/dL (0.7-1.2) L 05/12/16 05:10 Estimated GFR > 60 ml/min 05/12/16 05:10 BUN/Creatinine Ratio 36.66 % 05/12/16 05:10 Glucose 150 mg/dL (65-100) H 05/12/16 05:10 Calcium 8.6 mg/dL (8.4-10.2) 05/12/16 05:10 Magnesium 4.0 mg/dL (1.7-2.3) H 05/10/16 04:28 Total Bilirubin 0.7 mg/dL (0.1-1.2) 05/10/16 04:28 AST 13 units/L (5-40) 05/10/16 04:28 ALT 7 units/L (7-56) 05/10/16 04:28 Alkaline Phosphatase 98 units/L (35-129) 05/10/16 04:28 Troponin T < 0.010 ng/mL (0.00-0.029) 05/10/16 04:28 C-Reactive Protein 1.00 mg/dL (0.00-1.30) 05/11/16 16:22 NT-Pro-B Natriuret Pep 16.87 pg/mL (0-450) 05/10/16 04:28 Total Protein 7.2 g/dL (6.3-8.2) 05/10/16 04:28 Albumin 3.9 g/dL (3.9-5) 05/10/16 04:28 Albumin/Globulin Ratio 1.2 % 05/10/16 04:28 HCG, Qual Negative (Negative) 05/10/16 04:28 Urine Color Yellow (Yellow) 05/11/16 06:35 Urine Turbidity Clear (Clear) 05/11/16 06:35 Urine pH 6.0 (5.0-7.0) 05/11/16 06:35 Ur Specific [place] 1.030 (1.003-1.030) 05/11/16 06:35 Urine Protein 100 mg/dl mg/dL (Negative) 05/11/16 06:35 Urine Glucose (UA) 50 mg/dL (Negative) 05/11/16 06:35 Urine Ketones 80 mg/dL (Negative) 05/11/16 06:35 Urine Blood Neg (Negative) 05/11/16 06:35 Urine Nitrite Neg (Negative) 05/11/16 06:35 Urine Bilirubin Neg (Negative) 05/11/16 06:35 Urine Urobilinogen < 2.0 mg/dL (<2.0) 05/11/16 06:35 Ur Leukocyte Esterase Neg (Negative) 05/11/16 06:35 Urine WBC (Auto) < 1.0 /HPF (0.0-6.0) 05/11/16 06:35 Urine RBC (Auto) < 1.0 /HPF (0.0-6.0) 05/11/16 06:35 U Epithel Cells (Auto) 1.0 /HPF (0-13.0) 05/11/16 06:35 Urine Mucus Few /HPF 05/11/16 06:35
[2016-05-13] MEDS: DUONEB 0.5 MG-3 MG/3 ML SOLN IH SCH ×3 (03:15→11:59)
[2016-05-13 08:02] LABS: Anion Gap 17 mmol/L; Blood Urea Nitrogen 18 mg/dL (7-17); Calcium 8.7 mg/dL (8.4-10.2); Carbon Dioxide 20 mmol/L (22-30); Chloride 104.8 mmol/L (98-107); Glucose 164 mg/dL (65-100); Potassium 4.1 mmol/L (3.6-5.0); Sodium 138 mmol/L (137-145)
[2016-05-13 08:11] LABS: Hematocrit 42.1 % (30.3-42.9); Mean Corpuscular HGB Conc 33 % (30-34); Mean Corpuscular Hemoglobin 26 pg (28-32); Mean Corpuscular Volume 79 fl (79-97); Platelet Count 318 K/mm3 (140-440); Red Blood Count 5.32 M/mm3 (3.65-5.03); White Blood Count 18.7 K/mm3 (4.5-11.0)
[2016-05-13] MEDS: BROVANA NEBU IH SCH (08:11)
[2016-05-13 08:37] VITALS: BP 112/64
--- NOTE | 2016-05-13 10:06 | Discharge Summary ---
Providers - Providers Date of Admission: 05/10/16 06:08 Date of discharge: 05/13/16 Attending physician: NAYAN YANES 05/10/16 12:42 Consult to Physician [CONS] Routine Consulting Provider: JOSAFAT BRENNAN Reason For Exam: asthma exacerbation Place consult to:: Dr. Moore Notified:: OFFICE Phone number called:: [phone] Was contact made?: Yes If yes, spoke with:: DARLENE Time called:: 13:27 Primary care physician: [facility] Hospitalization Condition: Good Disposition: DISCHARGED TO HOME OR SELFCARE - Discharge Diagnoses (1) Acute respiratory failure Status: Acute Qualifiers: Respiratory failure complication: R (2) Asthma exacerbation Status: Acute Exam - Constitutional Vitals: Temp Pulse Resp BP Pulse Ox 97.6 F 85 18 112/64 96 05/13/16 08:00 05/13/16 08:28 05/13/16 08:28 05/13/16 08:00 05/13/16 08:33 Plan Activity: no restrictions Diet: low fat Additional Instructions: 1.Follow up with PCP or [facility] in 1 week. 2.Follow up with Dr. Nair in 1 week Follow up with: PRIMARY CARE, [Primary Care Provider] - 3-5 Days Prescriptions: ALBUTEROL Inhaler [ProAir HFA Inhaler] 2 puff IH QID PRN #1 pump PRN Reason: Shortness Of Breath ALBUTEROL NEB's [Proventil 0.083% NEBS] 2.5 mg IH TID PRN 30 Days PRN Reason: Wheezing Azithromycin [Zithromax TAB] 250 mg PO QDAY #3 tablet Prednisone [predniSONE 10 mg (6-Day Pack, 21 Tabs)] 10 mg PO .TAPER #1 tab.ds.pk
[2016-05-13] MEDS: LOVENOX SUB-Q SCH (10:26)
[2016-05-13] MEDS: ZITHROMAX 500 MG in NACL 0.9% 250ML 250 ML IV SCH (10:59)
--- NOTE | 2016-05-13 13:33 | Progress Note ---
Assessment and Plan Tis is 30 year old female has history of asthma admitted with shortness of breath, wheezing and cough. Coughing up yellow sputum. Patient denies allergies to the medications. Patient gets asthma attacks twice a year. 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 Not . No children. Patient denies other medical problems. Patient has history of smoking 1/2 a pack a day for 10 years. Counselled her to stop smoking.Drinks alcohol socially.No history of drug abuse.Family history positive for hypertension. 05/13/16 Patient says breathing better. No complaint of chest pain,shortness of breath or cough.Patient resting on room air. O2 satuaration 96% on room air. Patient can go home pulmonary point of view on PO prednisone, Aerosolized bronchodilators and PO antibiotics. Can come to my office for pulmonary follow up in 1 0r 2 weeks. - Patient Problems (1) Acute bronchitis Current Visit: Yes Status: Acute Qualifiers: Bronchitis organism: B Plan to address problem: Recommend to switch to PO antibiotics. (2) Asthma exacerbation Current Visit: Yes Status: Acute Plan to address problem: Patient resting on room air. Albuterol/Atrovent aerosol treatments q 6 hours. Recommend to switch to po Prednisone. Continue S/C Lovenox. (3) Respiratory distress Current Visit: Yes Status: Acute Plan to address problem: Improved. No complaint of chest pain or shortness of breath. or cough. Subjective Date of service: 05/13/16 Principal diagnosis: Acute Asthma Exacerbation Interval history: Patient says breathing better. No complaint of chest pain,shortness of breath or cough.Patient resting on room air. O2 satuaration 96% on room air. Patient can go home pulmonary point of view on PO prednisone, Aerosolized bronchodilators and PO antibiotics. Can come to my office for pulmonary follow up in 1 0r 2 weeks. Objective Vital Signs - 12hr 05/13/16 05/13/16 05/13/16 03:15 03:45 08:00 Temperature 97.6 F Pulse Rate [ 81 89 Bilateral Throughout] Pulse Rate [ 91 H Right] Respiratory 18 Rate Respiratory 19 17 Rate [Bilateral Throughout] Blood Pressure 112/64 [Left Arm] O2 Sat by Pulse 95 Oximetry 05/13/16 05/13/16 05/13/16 08:11 08:28 08:33 Temperature Pulse Rate [ 94 H 85 Bilateral Throughout] Pulse Rate [ Right] Respiratory Rate Respiratory 18 18 Rate [Bilateral Throughout] Blood Pressure [Left Arm] O2 Sat by Pulse 96 Oximetry 05/13/16 05/13/16 11:59 12:11 Temperature Pulse Rate [ 92 H 104 H Bilateral Throughout] Pulse Rate [ Right] Respiratory Rate Respiratory 18 20 Rate [Bilateral Throughout] Blood Pressure [Left Arm] O2 Sat by Pulse Oximetry Constitutional: no acute distress, alert ENT: oropharynx moist Neck: supple, no JVD Ascultation: Bilateral: clear Cardiovascular: regular rate and rhythm Gastrointestinal: normoactive bowel sounds, soft, non-tender, non-distended Integumentary: normal Extremities: no cyanosis, no edema, pulses normal, no ischemia or petechiae Neurologic: normal mental status, non-focal exam, pupils equal and round, CN II- XII normal Psychiatric: mood appropriate, affect normal CBC and BMP: 05/13/16 07:04 05/13/16 07:04 ABG, PT/INR, D-dimer: ABG POC ABG pH 7.411 (7.35-7.45) 05/11/16 12:10 POC ABG pCO2 33.6 (35-45) L 05/11/16 12:10 POC ABG pO2 96 (80-105) 05/11/16 12:10 POC ABG HCO3 21.4 05/11/16 12:10 POC ABG Total CO2 22 05/11/16 12:10 POC ABG O2 Sat 98 05/11/16 12:10 PT/INR, D-dimer D-Dimer < 135.00 ng/mlDDU (0-234) 05/10/16 04:28 Abnormal lab findings: Abnormal Labs 05/10/16 05/11/16 05/11/16 06:49 06:27 06:27 WBC 21.1 H RBC 5.76 H Hgb 15.0 H Hct 45.3 H MCH 26 L Seg Neuts % (Manual) 98.0 H Lymphocytes % (Manual) 2.0 L Seg Neutrophils # Man 20.7 H Lymphocytes # (Manual) 0.4 L POC ABG pH 7.338 L POC ABG pCO2 34.6 L Carbon Dioxide 21 L BUN Creatinine 0.6 L Glucose 157 H 05/11/16 05/12/16 05/12/16 12:10 05:10 05:10 WBC 24.6 H RBC 5.26 H Hgb Hct MCH 26 L Seg Neuts % (Manual) Lymphocytes % (Manual) Seg Neutrophils # Man Lymphocytes # (Manual) POC ABG pH POC ABG pCO2 33.6 L Carbon Dioxide BUN 22 H Creatinine 0.6 L Glucose 150 H 05/13/16 05/13/16 07:04 07:04 WBC 18.7 H RBC 5.32 H Hgb Hct MCH 26 L Seg Neuts % (Manual) Lymphocytes % (Manual) Seg Neutrophils # Man Lymphocytes # (Manual) POC ABG pH POC ABG pCO2 Carbon Dioxide 20 L BUN 18 H Creatinine 0.5 L Glucose 164 H Chest x-ray: report reviewed
== END 2016-05-13 15:28 | disposition home or self-care (01) | DRG 189 ==
LOC: ED 04:04 → SUATTDRO 04:04 → 3A 06:08
PROVIDERS: ADMIT Internal Medicine; ATTEND Internal Medicine
PROC: 4A033R1 Measurement of Arterial Saturation, Peripheral, Percutaneous Approach (ICD-10-PCS; principal; 2016-05-10)
DX: J96.00 Acute respiratory failure, unspecified whether with hypoxia or hypercapnia (principal); J45.901 Unspecified asthma with (acute) exacerbation; J20.9 Acute bronchitis, unspecified; F17.209 Nicotine dependence, unspecified, with unspecified nicotine-induced disorders; E66.9 Obesity, unspecified; Z68.32 Body mass index [BMI] 32.0-32.9, adult; Z82.49 Family history of ischemic heart disease and other diseases of the circulatory system; Z71.6 Tobacco abuse counseling
CPT/HCPCS: 36415; 36600; 71010; 80048; 80053; 81001; 82803; 83735; 83880; 84484; 84703; 85007; 85025; 85027; 85379; 86140; 93005; 93010; 94640; 94660; 94760; 96365; 96375; J0456; J1650; J2930; J3475; J7050